=== PATIENT | male | born 1930 | race American Indian/Alaskan Native ===

== ENCOUNTER 2016-07-21 19:24 | Emergency (ER) | payer MEDICARE ==
[2016-07-21 19:25] VITALS: BMI 32.1
[2016-07-21 20:02] VITALS: RESP 16
--- NOTE | 2016-07-21 20:17 | ED PDOC ---
"Arrival/HPI - General Historian: Patient - History of Present Illness Time/Duration: Other (2 weeks) Context: Home - General Chief Complaint: Weakness/Neurological Deficit Time Seen by Provider: 07/21/16 20:10 - History of Present Illness Narrative History of Present Illness (Text): 07/21/16 20:16 This 85 yo male with pmh htn, bph, ckd, right wrist carpal tunnel, presents to this ED c/o b/l hands feeling numbness, and pain x 2 weeks. Patient stated symptoms started after taking Gabapentin for his chronic right hand pain and numbness. Patient denies dizziness, diplopia, sob, cp, abdominal pain, neck pain, BO, rash, trauma, or abnormal gait. (Lindsey Conley) Past Medical History - Provider Review Nursing Documentation Reviewed: Yes - Infectious Disease Hx of Infectious Diseases: None - Cardiac Hx Hypertension: Yes - Pulmonary Hx Respiratory Disorders: No Hx Asthma: No Hx Bronchitis: No Hx Chronic Obstructive Pulmonary Disease (COPD): No Hx Emphysema: No Hx Pneumonia: No Hx Respiratory Aspiration: No Hx Respiratory Tract Infection: No Hx Sleep Apnea: No Hx Tuberculosis: No - Neurological Hx Neurological Disorder: Yes Hx Alzheimer's Disease: No HX Cerebrovascular Accident: No Hx Dementia: No Hx Dizziness: No Hx Meningitis: No Hx Migraine: No Hx Parkinson's Disease: No Hx Seizures: No Hx Transient Ischemic Attacks (TIA): No Other/Comment: NEUROPATHY - HEENT Hx HEENT Disorder: No Hx Blind: No Hx Cataracts: No Hx Deafness: No Hx Difficulty Chewing: No Hx Epistaxis: No Hx Glaucoma: No Hx Macular Degeneration: No - Renal Hx Renal Disorder: No Hx Dialysis: No Hx Kidney Stones: No Hx Neurogenic Bladder: No Hx Pyelonephritis: No Hx Renal Cancer: No Hx Renal Failure: No - Endocrine/Metabolic Hx Endocrine Disorders: No Hx Adrenal Cancer: No Hx Diabetes Insipidus: No Hx Diabetes Mellitus Type 1: No Hx Diabetes Mellitus Type 2: No Hx Hyperthyroidism: No Hx Hypothyroidism: No Hx Systemic Lupus Erythematosus: No - Hematological/Oncological Hx Blood Disorders: No Hx AIDS: No Hx Anemia: No Hx Cancer: No Hx Chemotherapy: No Hx Cirrhosis: No Hx Hemophilia: No Hx Hepatitis A: No Hx Hepatitis B: No Hx Hepatitis C: No Hx Metastasis: No Hx Shingles: No Hx Sickle Cell Disease: No Hx Unexplained Bleeding: No - Integumentary Hx Dermatological Disorder: No Hx Basal Cell Carcinoma: No Hx Eczema: No Hx Melanoma: No Hx Psoriasis: No Hx Squamous Cell Carcinoma: No - Musculoskeletal/Rheumatological Hx Gout: Yes - Gastrointestinal Hx Gastrointestinal Disorders: No Hx Colostomy: No Hx Crohn's Disease: No Hx Diverticulitis: No Hx Gall Bladder Disease: No Hx Gastroesophageal Reflux: No Hx Gastrointestinal Ulcer: No Hx Ileostomy: No Hx Liver Failure: No Hx Pancreatitis: No HX Swallowing Problems: No - Genitourinary/Gynecological Hx Genitourinary Disorders: Yes Hx Hematuria: No Hx Incontinence: No Hx Prostate Problems: Yes Hx Sexually Transmitted Diseases: No Hx Urinary Tract Infection: No - Psychiatric Hx Psychophysiologic Disorder: No Hx Anxiety: No Hx Bipolar Disorder: No Hx Depression: No Hx Emotional Abuse: No Hx Hallucinations: No Hx Panic Disorder: No Hx Post Traumatic Stress Disorder: No Hx Psychosis: No Hx Physical Abuse: No Hx Schizophrenia: No Hx Sexual Abuse: No Hx Substance Use: No - Surgical History Hx Amputation: No Hx Appendectomy: No Hx Cardiac Catheterization: No Hx Cholecystectomy: No Hx Coronary Stent: No Hx Gastric Bypass Surgery: No Hx Hysterectomy: No Hx Joint Replacement: No Hx Kidney Transplant: No Hx Liver Transplant: No Hx Mastectomy: No Hx Musculoskeletal Surgery: No Hx Open Heart Surgery: No Hx Orthopedic Surgery: No Hx Splenectomy: No Hx Valve Replacement: No Other/Comment: Pt stated he had a fatty tumor/cyst removed from his lt side. Pt also had a prostate procedure with Dr Seth. - Anesthesia Hx Anesthesia: No Hx Anesthesia Reactions: No Hx Malignant Hyperthermia: No Family/Social History - Physician Review Nursing Documentation Reviewed: Yes Family/Social History: No Known Family HX Smoking Status: Former Smoker Hx Alcohol Use: No Hx Substance Use: No Allergies/Home Meds Allergies/Adverse Reactions: Allergies No Known Allergies Allergy (Verified 07/21/16 19:46) Home Medications: Home Meds Medication Instructions Recorded Confirmed amLODIPine [Norvasc] 10 mg PO DAILY 04/24/15 07/21/16 Docusate [Colace] 100 mg PO DAILY 07/21/16 07/21/16 Ferrous Sulfate, Dried [Iron] 1 tab PO DAILY 07/21/16 07/21/16 Gabapentin [Neurontin] 300 mg PO TID 07/21/16 07/21/16 Multivit-Min/FA/Lycopen/Lutein 1 tab PO DAILY 07/21/16 07/21/16 [Centrum Silver Men Tablet] Tamsulosin [Flomax] 0.4 mg PO DAILY 07/21/16 07/21/16 Review of Systems - Review of Systems Constitutional: Normal. absent: Fatigue, Weight Change, Fevers Eyes: Normal ENT: Normal Respiratory: Normal Cardiovascular: Normal Gastrointestinal: Normal Genitourinary Male: Normal Musculoskeletal: Other (See HPI) Skin: Normal Neurological: Other (See HPI). absent: Headache, Dizziness, Focal Weakness, Gait Changes, Speech Changes, Facial Droop, Disequilibrium Endocrine: Normal Hemo/Lymphatic: Normal Psychiatric: Normal Physical Exam Temperature: Afebrile Blood Pressure: Normal Pulse: Regular Respiratory Rate: Normal Appearance: Positive for: Well-Appearing, Non-Toxic, Comfortable Pain Distress: None Mental Status: Positive for: Alert and Oriented X 3 - Systems Exam Head: Present: Atraumatic, Normocephalic Pupils: Present: PERRL Extroacular Muscles: Present: EOMI Conjunctiva: Present: Normal Ears: Present: Normal, NORMAL TM, Normal Canal. No: Erythema, TM Bulging, Fluid Mouth: Present: Moist Mucous Membranes Pharnyx: Present: Normal. No: ERYTHEMA, EXUDATE, TONSILS ENLARGED Neck: Present: Normal Range of Motion. No: Meningeal Signs Respiratory/Chest: Present: Clear to Auscultation, Good Air Exchange. No: Respiratory Distress, Accessory Muscle Use, Wheezes, Retracting Cardiovascular: Present: Regular Rate and Rhythm, Normal S1, S2. No: Murmurs Abdomen: Present: Normal Bowel Sounds. No: Tenderness, Distention, Peritoneal Signs, Rebound, Guarding Back: Present: Normal Inspection. No: CVA Tenderness Upper Extremity: Present: Normal ROM, NORMAL PULSES, Neurovascularly Intact, Capillary Refill < 2s, Other (Chronic right thenar atrophy from chronic carpal tunnel. No erythema or swelling.). No: Cyanosis, Edema, Tenderness, Swelling Lower Extremity: Present: Normal Inspection, NORMAL PULSES, Normal ROM, Capillary Refill < 2 s. No: Edema Neurological: Present: GCS=15, CN II-XII Intact, Speech Normal, Motor Func Grossly Intact, Normal Sensory Function, Gait Normal, Memory Normal Skin: Present: Warm, Dry, Normal Color. No: Rashes Psychiatric: Present: Alert, Oriented x 3 Vital Signs Temp Pulse Resp BP Pulse Ox 03/24/17 23:50 97.9 F 79 16 134/66 100 07/21/16 23:27 77 16 139/67 97 07/21/16 21:40 64 16 130/71 98 07/21/16 19:52 98.1 F 77 16 154/81 H 97 Medical Decision Making Re-evaluation Time: 23:38 Reassessment Condition: Re-examined, Improved - Lab Interpretations Interpretation: No clinic. lab abnormalty ((+) acute cystitis) - EKG Interpretation Interpreted by ED Physician: Yes (Sinus rhythm with sinus arrhythmia. No ST changes.) Type: 12 lead EKG Comparison: No previous EKG avail. (Dr. Freitas reviewed EKG) ED Course and Treatment: 07/21/16 23:38 Re-evaluation. Patient feels better. Discussed results and plan with patient and family who expresses understanding. All questions answered and there is agreement with the plan to discharge home with instructions. Patient stable for discharge. Return if symptoms persist or worsen. Patient remained stable during the course of ED visit. Patient has his normal gait. Denies dizziness. (Lindsey Conley) 07/23/16 11:40 I was available for consultation during PA evaluation. The chart reviewed by me , and I agree with disposition. The documented history was done by the physician steward/stewardess room. The documented physical exam was done by physician steward/stewardess room. The documented procedures were done by physician steward/stewardess room. (Chuckie Freitas) - Lab Interpretations Microbiology Results: Microbiology Results 07/21/16 23:34 Urine,Clean Catch Urine Culture - Preliminary Gram Negative Alejandro Lab Results: 07/21/16 20:43 07/21/16 20:43 Lab Results 07/21/16 22:08: Urine Color Yellow, Urine Appearance Clear, Urine pH 6.0, Ur Specific [place] 1.020, Urine Protein Negative, Urine Glucose (UA) Negative, Urine Ketones Negative, Urine Blood Negative, Urine Nitrate Positive H, Urine Bilirubin Negative, Urine Urobilinogen 0.2, Ur Leukocyte Esterase Small H, Urine RBC 1 - 3, Urine WBC 10 - 15, Ur Epithelial Cells 4 - 5, Amorphous Sediment Few, Urine Bacteria Many 07/21/16 20:47: Troponin I 0.02 07/21/16 20:43: WBC 8.7 D, RBC 3.66, Hgb 10.4 L, Hct 32.1 L, MCV 87.7, MCH 28.4 , MCHC 32.4, RDW 13.8, Plt Count 243, MPV 9.8, Gran % 62.6, Lymph % (Auto) 21.4 L, [place] % (Auto) 12.5 H, Eos % (Auto) 3.2, Baso % (Auto) 0.3, Gran # 5.45, Lymph # 1.9, [place] # 1.1 H, Eos # 0.3, Baso # 0.03, Sodium 140, Potassium 4.6, Chloride 106, Carbon Dioxide 24, Anion Gap 15, BUN 33 H, Creatinine 1.6 H, Est GFR ( Amer) 50, Est GFR (Non-Af Amer) 41, Random Glucose 103, Calcium 9.3 , Magnesium 2.2, Total Bilirubin 0.5, AST 36, ALT 30, Alkaline Phosphatase 84, Total Protein 7.7, Albumin 3.8, Globulin 3.9, Albumin/Globulin Ratio 1.0 L - RAD Interpretation Narrative RAD Interpretations (Text): 07/21/16 22:37 Patient Name: VIKTORIYA DEL ROSARIO Institution Name: [place] [address] Study Type: CT HEAD WO FINDINGS: Artifacts: Streak artifact degrades image quality. Motion artifact degrades image quality. Brain: There is prominence of sulci gyri and ventricles. There is no midline shift. There is decreased attenuation in periventricular white matter. There is an age-indeterminate lacunar infarct in right basal ganglia. There are no focal masses. There are no focal hemorrhages. Franco-white differentiation is visualized. Ventricles: See above. Bones: Cranial vault is intact. Soft tissues: unremarkable Sinuses: There is no acute sinusitis. Ears and mastoids: Middle ears and mastoids are unremarkable. Orbits: Orbital contents are unremarkable. 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 If you received this in error, call [phone]. Page 2 of 2 Thank you for allowing us to participate in the care of your patient. Dictated and Authenticated by: Andreia De La Cruz MD 07/21/2016 10:34 PM Eastern Time ([place] & [place] (Lindsey Conley) Radiology Orders: 07/21/16 21:02 HEAD W/O CONTRAST [CT] Stat - Medication Orders Current Medication Orders: Discontinued Medications Cephalexin Monohydrate (Keflex) 500 mg PO STAT STA PRN Reason: Protocol Stop: 07/21/16 23:35 Last Admin: 07/21/16 23:39 Dose: 500 MG Disposition/Present on Arrival - Present on Arrival Any Indicators Present on Arrival: No History of DVT/PE: No History of Uncontrolled Diabetes: No Urinary Catheter: No History of Decub. Ulcer: No History Surgical Site Infection Following: None - Disposition Have Diagnosis and Disposition been Completed?: Yes Disposition Time: 23:39 Patient Plan: Discharge - Disposition Diagnosis: Numbness and tingling in both hands, Acute cystitis Disposition: HOME/ ROUTINE Condition: GOOD Discharge Instructions (ExitCare): Urinary Tract Infection in Men (ED) Additional Instructions: Call private doctor and private urologist for follow up visit on Sunday. Review urine culture with your doctor in 3 days. Return to emergency if symptoms worsen. Prescriptions: Cephalexin [cephalexin] 500 mg PO BID #20 cap Referrals: Goldy Rodriguez MD [Primary Care Provider] - Follow up with primary Yuiry Seth MD [Staff Provider] - Follow up with primary"
[2016-07-21 20:49] LABS: ADD MANUAL DIFF? NO
[2016-07-21 20:52] LABS: BASO # 0.03 K/mm3 (0.0-2.0); BASO % 0.3 % (0.0-3.0); EOS # 0.3 (0.0-0.7); EOS % 3.2 % (1.5-5.0); GRAN # 5.45 (1.4-6.5); GRAN % 62.6 % (50.0-68.0); HEMATOCRIT 32.1 % (42.0-52.0); LYMPH # 1.9 (1.2-3.4); LYMPH % 21.4 % (22.0-35.0); MEAN CELL VOLUME 87.7 fL (80.0-105.0); MEAN CORPUSCULAR HEMOGLOBIN 28.4 pg (25.0-35.0); MEAN CORPUSCULAR HGB CONC 32.4 g/dl (31.0-37.0); MEAN PLATELET VOLUME 9.8 fl (7.0-11.0); MONO # 1.1 (0.1-0.6); MONO % 12.5 % (1.0-6.0); PLATELET COUNT 243 10^3/uL (120.0-450.0); RED CELL DISTRIBUTION WIDTH 13.8 % (11.5-14.5); WHITE BLOOD COUNT 8.7 10^3/ul (4.5-11.0)
[2016-07-21 21:06] LABS: BILIRUBIN,TOTAL 0.5 mg/dL (0.2-1.3); CALCIUM 9.3 mg/dL (8.4-10.5); MAGNESIUM 2.2 mg/dL (1.7-2.2); POTASSIUM 4.6 mmol/L (3.6-5.0); TOTAL PROTEIN 7.7 g/dL (5.8-8.3)
[2016-07-21 22:18] LABS: URINE BILIRUBIN NEGATIVE (NEGATIVE); URINE BLOOD NEGATIVE (NEGATIVE); URINE GLUCOSE (UA) NEGATIVE (NEGATIVE); URINE KETONE NEGATIVE (NEGATIVE); URINE LEUKOCYTE ESTERASE SMALL Leu/uL (NEGATIVE); URINE PROTEIN NEGATIVE mg/dL (<30 mg/dL); URINE UROBILINOGEN 0.2 E.U./dL (<1 E.U./dL)
[2016-07-21 22:25] LABS: URINE APPEARANCE CLEAR (CLEAR); URINE COLOR YELLOW (YELLOW)
[2016-07-21 22:34] LABS: URINE AMORPHOUS SEDIMENT FEW; URINE BACTERIA MANY (NEG)
--- NOTE | 2016-07-21 22:34 | CT ---
EXAM: CT Head Without Intravenous Contrast. CLINICAL HISTORY: 85 years old, male; Signs and symptoms; Numbness / parasthesia; Bilateral; Additional info: B/l hands numbness TECHNIQUE: Axial computed tomography images of the head/brain without intravenous contrast. This CT exam was performed using one or more of the following dose reduction techniques: automated exposure control, adjustment of the mA and/or kV according to patient size, and/or use of iterative reconstruction technique. EXAM DATE/TIME: 07/21/2016 9:02 PM COMPARISON: There are no prior studies for comparison. FINDINGS: Artifacts: Streak artifact degrades image quality. Motion artifact degrades image quality. Brain: There is prominence of sulci gyri and ventricles. There is no midline shift. There is decreased attenuation in periventricular white matter. There is an age-indeterminate lacunar infarct in right basal ganglia. There are no focal masses. There are no focal hemorrhages. Franco-white differentiation is visualized. Ventricles: See above. Bones: Cranial vault is intact. Soft tissues: unremarkable Sinuses: There is no acute sinusitis. Ears and mastoids: Middle ears and mastoids are unremarkable. Orbits: Orbital contents are unremarkable. IMPRESSION: Mild atrophy and small vessel disease, no bleed; age indeterminate right basal ganglia lacunar infarct
[2016-07-21 23:52] VITALS: BP 134/66; PULSE 79; TEMP 97.9; O2SAT 100
--- NOTE | 2016-07-22 14:59 | CARD ---
APPROVED REPORT EKG Measurement Heart [id number] <Conclusion> Sinus rhythm with Atrial bigeminy Otherwise normal ECG
== END 2016-07-22 00:08 | disposition home or self-care (01) ==
LOC: ED 19:24
DX: R20.9 Unspecified disturbances of skin sensation (principal); N30.00 Acute cystitis without hematuria; I10 Essential (primary) hypertension; Z87.891 Personal history of nicotine dependence

== ENCOUNTER 2016-07-28 22:30 | Inpatient (IN) | payer MEDICARE ==
[2016-07-28 22:42] VITALS: BMI 31.1
[2016-07-29 01:26] LABS: ADD MANUAL DIFF? NO
[2016-07-29 01:35] LABS: BASO # 0.02 K/mm3 (0.0-2.0); BASO % 0.2 % (0.0-3.0); EOS # 0.1 (0.0-0.7); EOS % 0.8 % (1.5-5.0); GRAN # 8.24 (1.4-6.5); GRAN % 80.9 % (50.0-68.0); HEMATOCRIT 32.6 % (42.0-52.0); LYMPH # 0.9 (1.2-3.4); LYMPH % 8.4 % (22.0-35.0); MEAN CELL VOLUME 87.2 fL (80.0-105.0); MEAN CORPUSCULAR HEMOGLOBIN 28.6 pg (25.0-35.0); MEAN CORPUSCULAR HGB CONC 32.8 g/dl (31.0-37.0); MEAN PLATELET VOLUME 10.1 fl (7.0-11.0); MONO % 9.7 % (1.0-6.0); PLATELET COUNT 247 10^3/uL (120.0-450.0); RED CELL DISTRIBUTION WIDTH 13.5 % (11.5-14.5); WHITE BLOOD COUNT 10.2 10^3/ul (4.5-11.0)
[2016-07-29 01:47] LABS: ALB/GLOB RATIO 0.9 (1.1-1.8); ALKALINE PHOSPHATASE 88 U/L (38-133); ALT/SGPT 24 U/L (7-56); AST/SGOT 41 U/L (15-59); BILIRUBIN,TOTAL 0.6 mg/dL (0.2-1.3); BLOOD UREA NITROGEN 29 mg/dL (7-21); CALCIUM 9.4 mg/dL (8.4-10.5); CARBON DIOXIDE 23 mmol/L (21-33); CHLORIDE 107 mmol/L (98-107); GFR AFRICAN-AMERICAN 50; GLUCOSE,RANDOM 96 mg/dL (70-110); POTASSIUM 4.6 mmol/L (3.6-5.0); SODIUM 140 mmol/L (132-148); TOTAL PROTEIN 8.5 g/dL (5.8-8.3)
[2016-07-29 02:06] LABS: TROPONIN I < 0.01 ng/mL
--- NOTE | 2016-07-29 02:42 | CT ---
EXAM: CT Head Without Intravenous Contrast CLINICAL HISTORY: 85 years old, male; Pain; Other: Fall; Additional info: Headache TECHNIQUE: Axial computed tomography images of the head/brain without intravenous contrast. This CT exam was performed using one or more of the following dose reduction techniques: automated exposure control, adjustment of the mA and/or kV according to patient size, and/or use of iterative reconstruction technique. COMPARISON: CT - HEAD W/O CONTRAST 07/21/2016 9:57:18 PM FINDINGS: Brain: [id number] atrophy. No intracranial hemorrhage. No mass. Several scattered foci of decreased attenuation within periventricular/subcortical white matter. No edema. Ventricles: No hydrocephalus. Bones/joints: No acute fracture. Soft tissues: Unremarkable. Vasculature: Atherosclerotic disease of intracranial arteries. Sinuses: Near-complete opacification of RIGHT sphenoid sinus. Scattered minimal mucosal thickening of remaining sinuses. Mastoid air cells: No mastoid effusion. Orbits: Unremarkable as visualized. IMPRESSION: 1. No intracranial hemorrhage. 2. Nonspecific white matter changes. 3. Sinus disease. 4. Incidental/non-acute findings are described above.
--- NOTE | 2016-07-29 02:47 | CT ---
EXAM: CT Cervical Spine Without Intravenous Contrast CLINICAL HISTORY: 85 years old, male; Pain; Neck pain; Additional info: Fall TECHNIQUE: Axial computed tomography images of the cervical spine without intravenous contrast. This CT exam was performed using one or more of the following dose reduction techniques: automated exposure control, adjustment of the mA and/or kV according to patient size, and/or use of iterative reconstruction technique. Coronal and sagittal reformatted images were created and reviewed. COMPARISON: No relevant prior studies available. FINDINGS: Vertebrae: No acute fracture. Straightening of cervical spine. Degenerative anterolisthesis of mid cervical spine. Anterior osteophytes. Facet osteoarthrosis within cervical spine. Degenerative changes of atlantoaxial articulation. Discs/spinal canal/neural foramina: Early degenerative disc disease within upper and mid cervical spine. Mild degenerative disc disease within lower cervical spine. Disc herniations within mid to lower cervical spine, suboptimally evaluated. Moderate indentation thecal sac/cord mid cervical spine. Mild indentation thecal sac lower cervical spine. Neuroforaminal narrowing within mid and lower cervical spine. Soft tissues: Unremarkable. Lung apices: Unremarkable as visualized. IMPRESSION: 1. No fracture. 2. Incidental/non-acute findings are described above.
[2016-07-29 02:55] LABS: URINE BILIRUBIN NEGATIVE (NEGATIVE); URINE BLOOD TRACE-INTACT (NEGATIVE); URINE GLUCOSE (UA) NEGATIVE (NEGATIVE); URINE KETONE NEGATIVE (NEGATIVE); URINE LEUKOCYTE ESTERASE NEGATIVE Leu/uL (NEGATIVE); URINE PROTEIN 30 mg/dL (<30 mg/dL); URINE UROBILINOGEN 0.2 E.U./dL (<1 E.U./dL)
[2016-07-29 02:59] LABS: URINE APPEARANCE CLEAR (CLEAR); URINE COLOR YELLOW (YELLOW)
--- NOTE | 2016-07-29 03:35 | ED PDOC ---
Arrival/HPI <Natalie,Robert - Last Filed: 07/29/16 03:47> - General Historian: Patient, Family <Kamille Senior - Last Filed: 07/29/16 04:36> - General Chief Complaint: Trauma Time Seen by Provider: 07/29/16 00:26 - History of Present Illness Narrative History of Present Illness (Text): 07/29/16 04:20 85-year-old male presents today brought in by ambulance after being found on the ground in his home. 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 Family members state that they were calling the house multiple times and the patient did not answer finally he answered a cell phone and said that he was on the ground. It is unsure the exact timeframe that the patient was on the ground but it is assumed that the patient has been on the ground since about 1:00 in the afternoon. Patient denies headache although he states he does have some pain to the left side of the forehead and an abrasion to the left side of the face. Patient denies dizziness. Patient states he has been feeling weak and that 's why he believes he was unable to get up once he had fallen. He denies chest pain or shortness of breath. He is complaining of chronic neck and low back pain he denies numbness weakness or tingling in the extremities. No abdominal pain. Patient states he did feel nauseous in the emergency room and vomited 3 times. Family members state that the patient has been having frequent falls lately but this is the first time that they've actually witnessed him on the ground. They state he usually tells them about a week later that he has fallen. (Kamille Senior) Past Medical History - Provider Review Nursing Documentation Reviewed: Yes - Travel History Have you recently traveled outside [place] w/in the past 3 mons?: No - Infectious Disease Hx of Infectious Diseases: None - Tetanus Immunization Tetanus Immunization: Unknown - Cardiac Hx Hypertension: Yes - Pulmonary Hx Respiratory Disorders: No Hx Asthma: No Hx Bronchitis: No Hx Chronic Obstructive Pulmonary Disease (COPD): No Hx Emphysema: No Hx Pneumonia: No Hx Respiratory Aspiration: No Hx Respiratory Tract Infection: No Hx Sleep Apnea: No Hx Tuberculosis: No - Neurological Hx Neurological Disorder: Yes Hx Alzheimer's Disease: No HX Cerebrovascular Accident: No Hx Dementia: No Hx Dizziness: No Hx Meningitis: No Hx Migraine: No Hx Parkinson's Disease: No Hx Seizures: No Hx Transient Ischemic Attacks (TIA): No Other/Comment: NEUROPATHY - HEENT Hx HEENT Disorder: No Hx Blind: No Hx Cataracts: No Hx Deafness: No Hx Difficulty Chewing: No Hx Epistaxis: No Hx Glaucoma: No Hx Macular Degeneration: No - Renal Hx Renal Disorder: No Hx Dialysis: No Hx Kidney Stones: No Hx Neurogenic Bladder: No Hx Pyelonephritis: No Hx Renal Cancer: No Hx Renal Failure: No - Endocrine/Metabolic Hx Endocrine Disorders: No Hx Adrenal Cancer: No Hx Diabetes Insipidus: No Hx Diabetes Mellitus Type 1: No Hx Diabetes Mellitus Type 2: No Hx Hyperthyroidism: No Hx Hypothyroidism: No Hx Systemic Lupus Erythematosus: No - Hematological/Oncological Hx Blood Disorders: No Hx AIDS: No Hx Anemia: No Hx Cancer: No Hx Chemotherapy: No Hx Cirrhosis: No Hx Hemophilia: No Hx Hepatitis A: No Hx Hepatitis B: No Hx Hepatitis C: No Hx Metastasis: No Hx Shingles: No Hx Sickle Cell Disease: No Hx Unexplained Bleeding: No - Integumentary Hx Dermatological Disorder: No Hx Basal Cell Carcinoma: No Hx Eczema: No Hx Melanoma: No Hx Psoriasis: No Hx Squamous Cell Carcinoma: No - Musculoskeletal/Rheumatological Hx Gout: Yes - Gastrointestinal Hx Gastrointestinal Disorders: No Hx Colostomy: No Hx Crohn's Disease: No Hx Diverticulitis: No Hx Gall Bladder Disease: No Hx Gastroesophageal Reflux: No Hx Gastrointestinal Ulcer: No Hx Ileostomy: No Hx Liver Failure: No Hx Pancreatitis: No HX Swallowing Problems: No - Genitourinary/Gynecological Hx Genitourinary Disorders: Yes Hx Hematuria: No Hx Incontinence: No Hx Prostate Problems: Yes Hx Sexually Transmitted Diseases: No Hx Urinary Tract Infection: No - Psychiatric Hx Psychophysiologic Disorder: No Hx Anxiety: No Hx Bipolar Disorder: No Hx Depression: No Hx Emotional Abuse: No Hx Hallucinations: No Hx Panic Disorder: No Hx Post Traumatic Stress Disorder: No Hx Psychosis: No Hx Physical Abuse: No Hx Schizophrenia: No Hx Sexual Abuse: No Hx Substance Use: No - Surgical History Hx Amputation: No Hx Appendectomy: No Hx Cardiac Catheterization: No Hx Cholecystectomy: No Hx Coronary Stent: No Hx Gastric Bypass Surgery: No Hx Hysterectomy: No Hx Joint Replacement: No Hx Kidney Transplant: No Hx Liver Transplant: No Hx Mastectomy: No Hx Musculoskeletal Surgery: No Hx Open Heart Surgery: No Hx Orthopedic Surgery: No Hx Splenectomy: No Hx Valve Replacement: No Other/Comment: Pt stated he had a fatty tumor/cyst removed from his lt side. Pt also had a prostate procedure with Dr Seth. - Anesthesia Hx Anesthesia: No Hx Anesthesia Reactions: No Hx Malignant Hyperthermia: No <Kamille Senior - Last Filed: 07/29/16 04:36> Family/Social History - Physician Review Nursing Documentation Reviewed: Yes Family/Social History: Unknown Family HX Smoking Status: Former Smoker Hx Alcohol Use: No Hx Substance Use: No <Kamille Senior - Last Filed: 07/29/16 04:36> Allergies/Home Meds <Rodrick Estrada - Last Filed: 07/29/16 03:47> <Kamille Senior - Last Filed: 07/29/16 04:36> Allergies/Adverse Reactions: Allergies No Known Allergies Allergy (Verified 07/21/16 19:46) Home Medications: Home Meds Medication Instructions Recorded Confirmed amLODIPine [Norvasc] 10 mg PO DAILY 04/24/15 07/21/16 Docusate [Colace] 100 mg PO DAILY 07/21/16 07/21/16 Ferrous Sulfate, Dried [Iron] 1 tab PO DAILY 07/21/16 07/21/16 Gabapentin [Neurontin] 300 mg PO TID 07/21/16 07/21/16 Multivit-Min/FA/Lycopen/Lutein 1 tab PO DAILY 07/21/16 07/21/16 [Centrum Silver Men Tablet] Tamsulosin [Flomax] 0.4 mg PO DAILY 07/21/16 07/21/16 Review of Systems - Review of Systems Constitutional: absent: Fatigue, Fevers Eyes: absent: Vision Changes, Photophobia, Eye Pain ENT: absent: Sore Throat, Sinus Congestion Respiratory: absent: SOB, Cough Cardiovascular: absent: Chest Pain, Palpitations Gastrointestinal: Nausea, Vomiting. absent: Abdominal Pain, Constipation, Diarrhea Genitourinary Male: absent: Dysuria, Frequency, Hematuria Musculoskeletal: Back Pain, Neck Pain. absent: Arthralgias Skin: absent: Rash, Pruritis Neurological: absent: Headache, Dizziness Psychiatric: absent: Anxiety, Depression <Kamille Senior - Last Filed: 07/29/16 04:36> Physical Exam Vital Signs Reviewed: Yes Temperature: Afebrile Blood Pressure: Normal Pulse: Regular Respiratory Rate: Normal Appearance: Positive for: Well-Appearing, Non-Toxic, Comfortable Pain Distress: None Mental Status: Positive for: Alert and Oriented X 3 - Systems Exam Head: Present: Tenderness (+ swelling and minimal tenderness noted to the left forehead. ), Swelling, Abrasion (small abrasion noted to left side of neck just inferior to the ear. no active bleeding; non tender; ) Pupils: Present: PERRL Extroacular Muscles: Present: EOMI Conjunctiva: Present: Normal Mouth: Present: Moist Mucous Membranes Nose (Internal): Present: Normal Inspection Neck: Present: Normal Range of Motion, Paraspinal Tenderness, Trachea Midline. No: MIDLINE TENDERNESS Respiratory/Chest: Present: Clear to Auscultation, Good Air Exchange. No: Respiratory Distress, Accessory Muscle Use Cardiovascular: Present: Regular Rate and Rhythm, Normal S1, S2. No: Murmurs Abdomen: No: Tenderness, Distention, Rebound, Guarding Back: Present: Normal Inspection, Midline Tenderness (+ low lumbar tenderness. ) , Paraspinal Tenderness Upper Extremity: Present: Normal ROM Lower Extremity: Present: Normal ROM Neurological: Present: GCS=15 Skin: Present: Warm, Dry, Normal Color. No: Rashes Psychiatric: Present: Alert <Kamille Senior - Last Filed: 07/29/16 04:36> Vital Signs Temp Pulse Resp BP Pulse Ox 07/29/16 04:26 85 16 142/70 96 07/29/16 02:42 98 F 87 16 138/74 98 07/28/16 22:48 98.2 F 87 18 130/80 98 Medical Decision Making <Rodrick Estrada - Last Filed: 07/29/16 03:47> <Kamille Senior - Last Filed: 07/29/16 04:36> ED Course and Treatment: 07/29/16 04:24 85-year-old male presents with unwitnessed fall versus syncope. Was found on the ground for at least 6+ hours. CBC within normal limits CMP: BUn and 29 creatinine 1.6 unchanged from his previous visit Urinalysis shows blood. trop: wnl cpk: 549 cxr: wnl CAT scan of the head: FINDINGS: Brain: Gopu-dz-tazuvgcs atrophy. No intracranial hemorrhage. No mass. Several scattered foci of decreased attenuation within periventricular/subcortical white matter. No edema. Ventricles: No hydrocephalus. Bones/joints: No acute fracture. Soft tissues: Unremarkable. Vasculature: Atherosclerotic disease of intracranial arteries. Sinuses: Near-complete opacification of RIGHT sphenoid sinus. Scattered minimal mucosal thickening of remaining sinuses. Mastoid air cells: No mastoid effusion. Orbits: Unremarkable as visualized. IMPRESSION: 1. No intracranial hemorrhage. 2. Nonspecific white matter changes. 3. Sinus disease. 4. Incidental/non-acute findings are described above. CAT scan of the neck:FINDINGS: Vertebrae: No acute fracture. Straightening of cervical spine. Degenerative anterolisthesis of mid cervical spine. Anterior osteophytes. Facet osteoarthrosis within cervical spine. Degenerative changes of atlantoaxial articulation. Discs/spinal canal/neural foramina: Early degenerative disc disease within upper and mid cervical spine. Mild degenerative disc disease within lower cervical spine. Disc herniations within mid to lower cervical spine, suboptimally evaluated. Moderate indentation thecal sac/ cord mid cervical spine. Mild indentation thecal sac lower cervical spine. Neuroforaminal narrowing within mid and lower cervical spine. Soft tissues: Unremarkable. Lung apices: Unremarkable as visualized. IMPRESSION: 1. No fracture. 2. Incidental/non-acute findings are described above CAT scan of the lumbar spine:FINDINGS: Vertebrae: No acute fracture. Anterior osteophytes. Facet osteoarthrosis within lumbar spine. Discs/spinal canal/neural foramina: Moderate degenerative disc disease within lower lumbar spine. Other bones: Mild degenerative changes of hip joints. Soft tissues: Unremarkable. Vasculature: Dfjc-ug-yumxtxru atherosclerotic disease. Ectasia of infrarenal aorta, up to 2.6 cm. Kidneys and ureters: Several renal cysts. Few hypodense lesions within kidneys, indeterminate by CT criteria. Stomach and bowel: Colonic diverticula. Reproductive: Enlarged prostate gland. IMPRESSION: 1. No fracture. 2. Kidney lesions, indeterminate. Recommend nonemergent ultrasound or MRI. 3. Incidental/non-acute findings are described above. EKG sinus rhythm with PACs at [address] elevations case discussed with dr. bo; will admit observational status to tele for syncope; all aspects of this case were discussed the attending of record. impression; syncope admit tele obs; dr. 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 (Kamille Senior) - Lab Interpretations Lab Results: 07/29/16 01:20 07/29/16 01:20 Lab Results 07/29/16 02:48: Urine Color Yellow, Urine Appearance Clear, Urine pH 6.0, Ur Specific [place] 1.025, Urine Protein 30 H, Urine Glucose (UA) Negative, Urine Ketones Negative, Urine Blood Trace-intact H, Urine Nitrate Negative, Urine Bilirubin Negative, Urine Urobilinogen 0.2, Ur Leukocyte Esterase Negative, Urine RBC 5 - 10, Urine WBC 2 - 5, Ur Epithelial Cells 6 - 8 07/29/16 01:20: WBC 10.2, RBC 3.74, Hgb 10.7 L, Hct 32.6 L, MCV 87.2, MCH 28.6, MCHC 32.8, RDW 13.5, Plt Count 247, MPV 10.1, Gran % 80.9 H, Lymph % (Auto) 8.4 L, [place] % (Auto) 9.7 H, Eos % (Auto) 0.8 L, Baso % (Auto) 0.2, Gran # 8.24 H, Lymph # 0.9 L, [place] # 1.0 H, Eos # 0.1, Baso # 0.02, Sodium 140, Potassium 4.6, Chloride 107, Carbon Dioxide 23, Anion Gap 15, BUN 29 H, Creatinine 1.6 H, Est GFR ( Amer) 50, Est GFR (Non-Af Amer) 41, Random Glucose 96, Calcium 9.4 , Total Bilirubin 0.6, AST 41, ALT 24, Alkaline Phosphatase 88, Lactate Dehydrogenase 650, Total Creatine Kinase 594 H, CK-MB (CK-2) 3.9 H, CK-MB (CK-2 ) % Cancelled, Troponin I < 0.01 D, Total Protein 8.5 H, Albumin 4.1, Globulin 4.5, Albumin/Globulin Ratio 0.9 L - RAD Interpretation Radiology Orders: 07/29/16 00:34 CHEST PORTABLE [RAD] Stat 07/29/16 00:35 CERVICAL SPINE W/O CONTRAST [CT] Stat HEAD W/O CONTRAST [CT] Stat 07/29/16 00:38 LUMBAR SPINE W/O CONTRAST [CT] Stat - Medication Orders Current Medication Orders: Discontinued Medications Ondansetron HCl (Zofran Inj) 4 mg IVP STAT STA Stop: 07/29/16 00:35 Last Admin: 07/29/16 01:11 Dose: 4 MG IVP Administration Document 07/29/16 01:11 SAIGE (Rec: 07/29/16 01:11 SAIGE [id number]) Charges for Administration # of IVP Administrations 1 - PA / HOSPICE VOLUNTEER COORDINATOR / Resident Statement / has reviewed & agrees with the documentation as recorded. / has examined the patient and agrees with the treatment plan. <Rodrick Estrada - Last Filed: 07/29/16 03:47> Disposition/Present on Arrival <Rodrick Estrada - Last Filed: 07/29/16 03:47> - Present on Arrival Any Indicators Present on Arrival: No History of DVT/PE: No History of Uncontrolled Diabetes: No Urinary Catheter: No History of Decub. Ulcer: No History Surgical Site Infection Following: None - Disposition Have Diagnosis and Disposition been Completed?: Yes Disposition Time: 00:35 Patient Plan: Observation, Telemetry <Kamille Senior - Last Filed: 07/29/16 04:36> - Disposition Diagnosis: Syncope, Head injury, Neck pain, Back pain Disposition: HOSPITALIZED Patient Problems: Current Active Problems Problem Status Diagnosed Back pain Acute Head injury Acute Neck pain Acute Syncope Acute Condition: FAIR
--- NOTE | 2016-07-29 03:36 | CT ---
EXAM: CT Lumbar Spine Without Intravenous Contrast CLINICAL HISTORY: 85 years old, male; Pain; Other: Fall; Additional info: Back pain TECHNIQUE: Axial computed tomography images of the lumbar spine without intravenous contrast. This CT exam was performed using one or more of the following dose reduction techniques: automated exposure control, adjustment of the mA and/or kV according to patient size, and/or use of iterative reconstruction technique. Coronal and sagittal reformatted images were created and reviewed. COMPARISON: No relevant prior studies available. FINDINGS: Vertebrae: No acute fracture. Anterior osteophytes. Facet osteoarthrosis within lumbar spine. Discs/spinal canal/neural foramina: Moderate degenerative disc disease within lower lumbar spine. Other bones: Mild degenerative changes of hip joints. Soft tissues: Unremarkable. Vasculature: Wdki-sc-zkkzzpiy atherosclerotic disease. Ectasia of infrarenal aorta, up to 2.6 cm. Kidneys and ureters: Several renal cysts. Few hypodense lesions within kidneys, indeterminate by CT criteria. Stomach and bowel: Colonic diverticula. Reproductive: Enlarged prostate gland. IMPRESSION: 1. No fracture. 2. Kidney lesions, indeterminate. Recommend nonemergent ultrasound or MRI. 3. Incidental/non-acute findings are described above.
[2016-07-29] MEDS ORDERED: FERROUS SULFATE DRIED PO SCH (10:00)
[2016-07-29] MEDS: [UNRECOGNIZED DRUG - OTHER] PO SCH (10:00)
[2016-07-29] MEDS: FERROUS SULFATE DRIED PO SCH (10:00)
[2016-07-29] MEDS ORDERED: [UNRECOGNIZED DRUG - OTHER] PO SCH (10:00)
[2016-07-29] MEDS: cefTRIAXone 1 gm 100 ML IVPB SCH (10:20)
--- NOTE | 2016-07-29 12:45 | CARD ---
APPROVED REPORT EKG Measurement Heart [id number] <Conclusion> Sinus rhythm with premature atrial complexes Otherwise normal ECG
--- NOTE | 2016-07-29 13:14 | RAD ---
HISTORY: chest pain COMPARISON: No prior. FINDINGS: LUNGS: No active pulmonary disease. PLEURA: No significant pleural effusion identified, no pneumothorax apparent. CARDIOVASCULAR: Normal. OSSEOUS STRUCTURES: No significant abnormalities. VISUALIZED UPPER ABDOMEN: Normal. OTHER FINDINGS: None. IMPRESSION: No active disease.
--- NOTE | 2016-07-29 19:02 | CON ---
DATE: 07/29/2016 CHIEF COMPLAINT: Status post fall. 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 No ch jonas in sense of vision, taste or smell. No history of seizures. He did not pass out as he claimed. He says he has a history of multiple falls, but denies any acute changes in neurological status. H e denies any headache, any change in sense of vision, taste, smell, any confusion episodes. No histo ry of seizures in the past. He denies any vertiginous symptoms at all either. His CT head showed no acute intracranial abnormality. His lumbar spine CT showed no acute abnormality, just degenerative disk disease and cervical spine CT just showed degenerative disk disease and some mild spinal stenosi s. Overall, he had mild elevated BUN and creatinine from his baseline, which could be secondary to d ehydration. Otherwise, he is moving all extremities without any difficulty. PAST MEDICAL HISTORY: Hypertension, chronic back pain, chronic neck pain without any radicular sympt oms, history of gout, arthritis. REVIEW OF SYSTEMS: A 14-point review of systems is negative except for the HPI. MEDICATIONS: Reviewed by nurse reconciliation sheet. SOCIAL HISTORY: No illicit drug use, smoking, or ETOH abuse. FAMILY HISTORY: Noncontributory. ALLERGIES: No known drug allergies. PHYSICAL EXAMINATION: VITAL SIGNS: Temperature of 97.5, pulse rate of 85, blood pressure 145/70, respiratory rate of 16. GENERAL: The patient is sitting in the chair, in no acute distress. HEENT: Atraumatic, normocephalic. PERRLA. Extraocular muscles intact. NECK: Supple, no JVD, no adenopathy noted. LUNGS: Clear to auscultation. No adventitious sounds. HEART: S1, S2, normal rate and rhythm. No murmurs, rubs, or gallops. ABDOMEN: Soft, nontender, nondistended. Bowel sounds present. EXTREMITIES: No clubbing, no cyanosis. Peripheral pulses 2+ felt bilaterally. NEUROLOGIC: The patient is alert, oriented to person, place, month and year. Recall after 5 minutes is 0/3. Poor attention span. Slow thought process. Cranial nerves II through XII are intact. MOTOR: Normal tone, normal bulk of muscle. Moves all extremities equally. Toes downgoing bilateral ly. No pronator drift seen. SENSORY: Light touch, pinprick, proprioception, vibration intact except for decreased vibration of t he toes. DTRs are 1+ throughout. COORDINATION: Tzwiij-wv-aruk intact. GAIT: Deferred for now. LABORATORIES: Sodium is 140, potassium 4.6, chloride of 107, carbon dioxide 23, BUN of 29, creatinin e 1.6, random glucose . ASSESSMENT AND PLAN: This is an 85-year-old -Martiniquais man with past medical history of arthri tis, chronic back pain, chronic neck pain, history of hypertension and gout who apparently was bent o azam to cloth picker a paper and had fallen down, but did not lose any consciousness. Denies any lighthead edness or any change in sense of vision, taste or smell. No history of any seizures or any confusion al episodes. His BUN and creatinine were slightly elevated at 29 and 1.6, which is elevated from his baseline. Orthostatics were normal. He denies any lightheadedness at this time, moving all extremi ties. He is mildly deconditioned. Likely, his fall is secondary to deconditioned state and some und erlying neuropathy of unknown etiology. At this time, I recommend: 1. B12 level and a hepatitis profile. 2. Physical therapy evaluation for his underlying deconditioned state. 3. Recommend to keep his blood pressure between 120-130 mmHg. 4. Aspirin 81 mg p.o. daily for stroke prevention. 5. Continue with current present medical management. Thank you for this consult. Shahzad Larsen MD cc: [id number] TT: 07/29/2016 19:02:06 Confirmation # [id number] Dictation # [id number]
[2016-07-29 19:38] LABS: TROPONIN I 0.02 ng/mL
[2016-07-29 19:56] LABS: IRON 34 ug/dL (45-180)
--- NOTE | 2016-07-29 20:04 | CON ---
DATE: 07/29/2016 The patient is in room 275, bed 1. REASON FOR CONSULTATION: Syncope, hypertension. HISTORY OF PRESENT ILLNESS: The patient is an 85-year-old male, known case of hypertension. States that he bent down to get some paper and he fell down and hit his head. Denies any chest pain, shortn ess of breath, or palpitation associated with this episode. The patient, as per the family, was ivette kowalski on the floor. The patient denies any nausea, vomiting, chest pain, palpitation, shortness of breat h, headache associated with this episode. PAST HISTORY: The patient is known hypertensive, had appendectomy, and has also prostate surgery. PERSONAL HISTORY: Used to smoke 1 pack a day but stopped 40 years ago. Denies drinking. Denies allergies. MEDICATIONS AT HOME: The patient was taking Norvasc 10 mg daily, ferrous sulfate 1 tablet daily, frieda apentin 300 mg p.o. t.i.d., Flomax 0.4 daily. REVIEW OF SYSTEMS: All the systems were reviewed. Positives mentioned in the history, and also mandy ent has history of back pain. The patient, on examination: VITAL SIGNS: Blood pressure 145/70. Earlier blood pressure 126/76. Respirations 16, pulse 85, temp erature 97.5. HEAD: Normocephalic. EYES: Pupils normal, conjunctivae slightly pale. NECK: JVP low, carotid equal. THORAX: AP diameter normal. LUNGS: Clear. CARDIOVASCULAR: S1, S2. ABDOMEN: Soft, nontender, no organomegaly. Bowel sounds normal. EXTREMITIES: No clubbing, no cyanosis. LABORATORIES: WBC 10.2, hemoglobin 10.7, hematocrit 32.6, platelet 247. Sodium 140, potassium 4.6, BUN 29, creatinine 1.6. Troponin less than 0.01. Total CPK 594. Total protein 8.5, albumin 4.1. A ST, ALT normal. Chest X-Ray: No active disease. EKG shows sinus rhythm with premature atrial complex, otherwise nor mal EKG. CT Scan of the Head: No intracranial hemorrhage. Lumbar spine CT scan showed degenerative changes of spine. Also, incidental finding was multiple cysts on the kidney; some were hypodense. DIAGNOSES: Fall, head injury, probably syncope, back pain, degenerative changes in the spine, hypert ension, anemia. PLAN: Continue to monitor the patient. Will do an echocardiogram, and also a consult with Dr. Paty caldwell has been requested, neurology consult for syncope. Will follow with you. The patient will continu e Flomax 0.4 mg p.o. daily, gabapentin 300 mg t.i.d., amlodipine 10 mg daily, Pepcid 40 mg p.o. at be dtime, Rocephin 1 g IV. Gurmeet Scott MD cc: [id number] TT: 07/29/2016 20:03:39 Confirmation # [id number] Dictation # [id number] jn
--- NOTE | 2016-07-29 20:21 | HP ---
CHIEF COMPLAINT: Fall, trauma, syncope. HISTORY OF PRESENT ILLNESS: The patient is an 85-year-old male, brought to ER by the ambulance after being found on the ground in his home. 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 Family members state that they were calling the house multiple times and the patient could not answer. Finally, he answered his cell phone and said that he is on the ground. He is not sure exactly what timeframe that happened, but according to him, he was on the ground since 1:00 in the afternoon. The patient denies headache, although he states he does have some pain in the left side of the forehead and abrasions to the left side of the face. The patient denies dizziness. The patient says he has been feeling weak and that is why he believes he was unable to get up once he had fallen. He denies chest pain, shortness of breath. No nausea, vomiting , diarrhea. He is complaining about chronic neck pain and low back pain. No numbness or weakness or tingling in the extremities. No abdominal pain, no fever, no chills. The patient said that in ER, he feels nauseous in the Emergency Room and vomited 3 times. Family member states that the patient has been having frequent falls lately and this is the first time that they have actually witnessed him on the ground. They state he usually tells them about a week later than he has fall. I saw the patient in telemetry. He was sitting on the chair. That moment, no nauseous, no vomiting. PAST MEDICAL HISTORY: Hypertension, frequent falls, gouty arthritis, BPH. FAMILY HISTORY: Father and mother noncontributory. HABITS: Former smoker. No drugs, no ethanol. ALLERGIES: The patient is not allergic with any medications. HOME MEDICATIONS: Norvasc, docusate, iron, Neurontin, multivitamins, Flomax. REVIEW OF SYSTEMS: The patient is seen and examined on the bedside, sitting on the chair, feeling fatigue and tired. No vision changes, no photophobia, no eye pain. No sore throat or sinus congestion. No shortness of breath or coughing. No chest pain or palpitation. Has history of nauseous, vomiting. No abdominal pain, constipation, or diarrhea. No history of dysuria, frequency , hematuria. Complaining about back pain, neck pain. No rash or pruritus. No anxiety or depression. PHYSICAL EXAMINATION: VITAL SIGNS: Temperature 97.5, pulse 85, blood pressure 145/70, respiratory rate 16. HEENT: Head normocephalic, atraumatic. Eyes: PERRLA. Extraocular muscles intact. Conjunctivae pink. Eyelids unremarkable. Nose patent. Mucous membranes moist. NECK: Supple. No carotid bruit, no JVD, no thyromegaly. CHEST: Bilaterally symmetrical. HEART: S1 and S2 positive. LUNGS: Clear to auscultation. ABDOMEN: Soft. Bowel sounds positive. No organomegaly. EXTREMITIES: No edema, no cyanosis. NEUROLOGIC: The patient is awake, alert, moving all 4 extremities. No focal deficits. LABORATORIES: White blood cells 10.2, hemoglobin 10.7, hematocrit 32.6, platelets 247. Sodium 140, potassium 4.6, BUN 29, creatinine 1.6. Urine has protein and trace intact blood. ASSESSMENT AND PLAN: The patient is an 85-year-old male with anemia, renal insufficiency, proteinuria, hematuria, has a fall. Lumbar spine CT done, shows no fracture, kidney stones undetermined, recommended ultrasound or MRI, incidental nonacute findings, enlarged prostate, colonic diverticula, so he has nephrolithiasis. CAT scan of the head done, no intracranial hemorrhage, nonspecific white matter changes, sinus disease, incidental acute findings, near complete opacification of right sphenoid sinus, scattered minimal mucosal thickening of the remaining sinus and looks like severe sinusitis. Cervical spine CT reviewed by me, no fractures, mild of thecal sac lower cervical spine , neuroforaminal narrowing within mid and lower cervical spine. Cardiology consult called with Dr. Scott and neurology with Dr. Larsen. Keep on checking. Gastrointestinal and deep vein thrombosis prophylaxis. Started patient on iron, multivitamins, Colace for constipation, Flomax for benign prostatic hypertrophy, Neurontin for nerve pain, amlodipine for hypertension, Pepcid for gastrointestinal prophylaxis. Started antibiotics for sinusitis. The patient is getting Zofran on p.r.n. basis for nauseousness. Repeat labs. We will follow up. Emy Villegas MD cc: [id number] TT: 07/29/2016 20:20:43 en MTDD
[2016-07-30 08:25] LABS: HEMATOCRIT 33.9 % (42.0-52.0); MEAN CELL VOLUME 87.8 fL (80.0-105.0); MEAN CORPUSCULAR HGB CONC 31.9 g/dl (31.0-37.0); MEAN PLATELET VOLUME 10.2 fl (7.0-11.0); RED CELL DISTRIBUTION WIDTH 13.4 % (11.5-14.5); WHITE BLOOD COUNT 7.3 10^3/ul (4.5-11.0)
[2016-07-30 08:31] LABS: POTASSIUM 4.7 mmol/L (3.6-5.0)
[2016-07-30] MEDS: cefTRIAXone 1 gm 100 ML IVPB SCH (10:15)
[2016-07-30] MEDS: FERROUS SULFATE DRIED PO SCH (10:16)
[2016-07-30] MEDS: [UNRECOGNIZED DRUG - OTHER] PO SCH (10:17)
--- NOTE | 2016-07-30 11:29 | PN ---
DATE: 07/30/2016 The patient in room 275, bed 1. REASON FOR CONSULTATION: Syncope, hypertension. HISTORY OF PRESENT ILLNESS: The patient is an 85-year-old male, known case of hypertension. 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 Denies chest pain, shortn ess of breath, palpitation, nausea, vomiting associated with this episode. The patient sitting in ch air comfortably at present. PHYSICAL EXAMINATION: VITAL SIGNS: Blood pressure 123/84, respirations 20, pulse 69, temperature 97.8. HEAD: Normocephalic. EYES: Pupils normal. Conjunctivae slightly pale. NECK: JVP low. Carotid equal. THORAX: AP diameter normal. LUNGS: Clear. CARDIOVASCULAR: S1, S2. ABDOMEN: Soft, no tenderness, no organomegaly. EXTREMITIES: No clubbing, no cyanosis. LABORATORY DATA: WBC 7.3, hemoglobin 10.8, hematocrit 33.9, platelet 231. Sodium 139, potassium 4.7 , BUN 28, creatinine 1.7, random glucose 78. Total CPK 1229. Troponin negative. TSH 1.25, which is normal. DIAGNOSES: Fall, head injury, probably syncope, back pain, degenerative changes in the spine, hypert ension, anemia. PLAN: We will continue to monitor patient to see any arrhythmia. Echo has been already requested. We will also order IV Lexiscan stress test. In the meantime, patient will continue with present ther apy, ferrous sulfate 1 tablet daily, Flomax 0.4 daily, Neurontin 300 mg t.i.d., amlodipine 10 mg alanna y, Rocephin 1 gram IV daily and we will continue to follow with you. Gurmeet Scott MD cc: [id number] TT: 07/30/2016 11:28:36 Confirmation # [id number] Dictation # [id number] en
--- NOTE | 2016-07-30 16:12 | US ---
PROCEDURE: HISTORY: kidny stones COMPARISON: TECHNIQUE: FINDINGS: The right left kidney measure 11.3 and 11.7 centimeters respectively without evidence of hydronephrosis or renal calculi. There are multiple bilateral renal cysts largest in the right kidney measuring 3.1 centimeters in the interpolar region and left kidney measuring 1.8 centimeters. Otherwise renal cortices are homogeneous. IMPRESSION: No renal calculi hydronephrosis. Multiple bilateral simple renal cysts.
--- NOTE | 2016-07-30 16:48 | US ---
PROCEDURE: Bilateral carotid artery duplex ultrasound HISTORY: Carotid stenosis PHYSICIAN(S): Zaid Amador MD. TECHNIQUE: Duplex sonography and color-flow Doppler were used to evaluate the carotid bifurcations and limited segments of the vertebral arteries bilaterally. FINDINGS: There is mild smooth heterogeneous plaque noted at the carotid bifurcations bilaterally. The peak systolic velocity in the proximal right internal carotid artery is 99 cm/sec. This corresponds to a 20 to 39% proximal right ICA stenosis. Normal systolic velocities are noted in the proximal right external carotid artery. There is antegrade flow in the right vertebral artery. The peak systolic velocity in the proximal left internal carotid artery is 93 cm/sec. This corresponds to a 20 to 39% proximal left ICA stenosis. Normal systolic velocities are noted in the proximal left external carotid artery. There is antegrade flow in the left vertebral artery. IMPRESSION: 1. Bilateral 20-39% proximal ICA stenoses. 2. Antegrade flow in both vertebral arteries.
--- NOTE | 2016-07-30 20:22 | PN ---
DATE: 07/30/2016 SUBJECTIVE: The patient seen and examined on the bedside, sitting on the chair. No nausea, vomiting, diarrhea. No hematuria or hematochezia. No swelling of the leg. No chest pain, no palpitation, no fever. PHYSICAL EXAMINATION: VITAL SIGNS: Blood pressure 123/84, respiratory rate 20, pulse 69, temperature 97.8. HEENT: Head normocephalic, atraumatic. Eyes PERRLA. Extraocular muscles intact. Conjunctivae pink. Eyelids unremarkable. Nose patent. Mucous membranes moist. NECK: Supple. No carotid bruit, JVD or thyromegaly. CHEST: Bilaterally symmetrical. HEART: S1, S2 positive. LUNGS: Clear to auscultation. ABDOMEN: Soft. Bowel sounds present. No organomegaly. EXTREMITIES: No edema, no cyanosis. NEUROLOGIC: The patient is awake, alert and moving all 4 extremities. No focal deficit. LABORATORY DATA: White blood cells 7.3, hemoglobin 10.8, hematocrit 33.9, platelets 231. Sodium 139, potassium 4.7, BUN noted creatinine 1.7, random glucose 78. Total CPK 1229. Troponin negative. TSH 1.25. ASSESSMENT AND PLAN: The patient is an 85-year-old male with history of fall, head injury, rule out syncope; back pain, degenerative changes in the spine, hypertension, anemia. Dr. Scott is monitoring patient for arrhythmias. Wants to do stress test. The patient given ferrous sulfate, Flomax, Neurontin and amlodipine. Rocephin is given also. The patient went for bilateral carotid artery ultrasound. It shows bilateral 20% to 39% proximal internal carotid artery stenosis, antegrade flow in both vertebral arteries. Went for renal ultrasound, no renal calculi, hydronephrosis, multiple bilateral simple renal cysts. Seen by Dr. Shahzad Larsen. The patient has history of hypertension, history of arthritis. Orthostatic was normal. Denies any lightheadedness at this time. Moving all extremities. Looks like deconditioned, patient needs physical therapy. Continue aspirin. Gastrointestinal and deep venous thrombosis prophylaxis. Repeat labs. We will follow up. Emy Villegas MD cc: [id number] TT: 07/30/2016 20:22:30 Confirmation # [id number] Dictation # [id number] sn MTDD
--- NOTE | 2016-07-31 12:31 | CP.PCM.PCO ---
Physician Communication Note - Physician Communication Note Physician Communication Note: carotid reveiwed. c/w ASA/Statin. PT needs physical therapy.
[2016-07-31] MEDS ORDERED: Aminophylline 25 mg/ml Inj ONE (12:56)
--- NOTE | 2016-07-31 13:42 | PN ---
DATE: 07/31/2016 REASON FOR CONSULTATION AND FOLLOWUP: Syncope, hypertension. HISTORY OF PRESENT ILLNESS: The patient is an 85-year-old male with a past medical history significa nt for hypertension, who fell down, sustained trauma to the head. Denies any chest pain, denies any shortness of breath, who bent down and fell down. The patient is scheduled for a stress test. PHYSICAL EXAMINATION: VITAL SIGNS: Temperature afebrile, heart rate , blood pressure 137/64. HEENT: PERRLA. Extraocular muscles intact. NECK: Supple. No carotid bruits. No thyromegaly. CHEST: Clear to auscultation. HEART: S1, S2 regular. ABDOMEN: Soft. EXTREMITIES: Clubbing, cyanosis negative. BLOOD WORKUP: WBC 7.3, hemoglobin 10.8, hematocrit 33.9, platelet count 231. Chemistry shows sodium 139, potassium 4. , chloride 105, carbon dioxide 26, anion gap of 13, BUN 28, creatinine 1.7. T roponin 0.02, negative. IMPRESSION: Chronic kidney disease, is status post fall, status post rhabdomyolysis, CPK maximum 122 9, troponin remains negative, no evidence of acute coronary syndrome, hypertension. RECOMMENDATION: We will follow echo. We will do a stress test. Further recommendations after the s tress test. No evidence of arrhythmia noted. After the stress test, we will discontinue telemetry. Thank you, Dr. Villegas, for providing us the opportunity in taking care of the patient. Gurmeet Barber MD cc: [id number] TT: 07/31/2016 13:41:58 Confirmation # [id number] Dictation # [id number] en
[2016-07-31] MEDS: FERROUS SULFATE DRIED PO SCH (15:12)
[2016-07-31] MEDS: cefTRIAXone 1 gm 100 ML IVPB SCH (15:12)
[2016-07-31] MEDS: Sodium Chloride 0.9% 1,000 ML IV SCH (15:14)
[2016-07-31] MEDS: [UNRECOGNIZED DRUG - OTHER] PO SCH (15:14)
--- NOTE | 2016-07-31 17:45 | CARD ---
APPROVED REPORT EXAM: Two-dimensional and M-mode echocardiogram with Doppler and color Doppler. INDICATION Hypertension/HCVD Syncope 2D DIMENSIONS Left Atrium (2D)3.2 (1.6-4.0cm)IVSd1.2 (0.7-1.1cm) LVDd4.0 (3.9-5.9cm)PWd1.3 (0.7-1.1cm) LVDs3.1 (2.5-4.0cm)FS (%) 24.5 % LVEF (%)49.2 (>50%) M-Mode DIMENSIONS Aortic Root2.80 (2.2-3.7cm)Aortic Cusp Exc.1.70 (1.5-2.0cm) Aortic Valve AoV Peak Jwzakjpu974.0cm/Ernestine Peak GR.9mmHg Mitral Valve MV E Sordtkkj05.3cm/sMV A Qqfmruov533.0cm/sE/A ratio0.6 TDI E/Lateral E'0.0E/Medial E'0.0 Tricuspid Valve TR Peak Twvisryq079yb/sRAP [id number] Peak Gr.27mmHg [id number] LEFT VENTRICLE The left ventricle is normal size. There is mild concentric left ventricular hypertrophy. The systolic function is mildly impaired.EF-45-50% There is mild hypokinesis in the mid-inferoseptal wall. Transmitral Doppler flow pattern is Grade III-reversible restrictive diastolic dysfunction. No left ventricle thrombus noted on this study. There is no ventricular septal defect visualized. There is no left ventricular aneurysm. There is no mass noted in the left ventricle. RIGHT VENTRICLE The right ventricle is normal size. There is normal right ventricular wall thickness. The right ventricular systolic function is normal. ATRIA The left atrium size is normal. The right atrium size is normal. The interatrial septum is intact with no evidence for an atrial septal defect. AORTIC VALVE The aortic valve is calcified but opens well. The aortic valve is moderately sclerotic. There is trace aortic regurgitation. There is no aortic valvular stenosis. Aortic Sclerosis Vs Mild MITRAL VALVE The mitral valve is thickened but opens well. Mitral annular calcification is mild. Mitral regurgitation is trace. There is no mitral valve stenosis. There is no evidence of mitral valve prolapse. TRICUSPID VALVE The tricuspid valve leaflets are thickened , but open well. There is trace to mild tricuspid regurgitation.RVSP-37 mmof Hg. There is no tricuspid valve stenosis. PULMONIC VALVE The pulmonic valve is mildly thickened. There is trace to mild pulmonic valvular regurgitation. There is no pulmonic valvular stenosis. GREAT VESSELS The aortic root is normal in size. The ascending aorta is normal in size. The pulmonary artery is normal. The IVC is normal in size and collapses >50% with inspiration. PERICARDIAL EFFUSION There is no pleural effusion. There is no pericardial effusion. <Conclusion> The left ventricle is normal size. There is mild concentric left ventricular hypertrophy. The systolic function is mildly impaired.EF-45-50% There is trace aortic regurgitation. Aortic Sclerosis Vs Mild Mitral regurgitation is trace. There is trace to mild tricuspid regurgitation.RVSP-37 mmof Hg.
--- NOTE | 2016-07-31 22:06 | CARD ---
APPROVED REPORT Protocol: LEXISCAN Test Type: Lexiscan Sestamibi Stress Test Attending Physician: Dr. Gurmeet Scott Referring Physician: Dr. Emy Villegas Test Indications: Chest pain Height:6 ft 0 in Weight:218lbs Medications: Tylenol, Norvasc, Rocephin, Colace, Pepcid, Neurontin, Ferrous Sulfate, Zofran, Flomax, Multivitamin Medical History: 85 y/o male with a history of htn, gout, BPH Target HR: 137 bpm Resting ECG: Sinus Rythm. PACs. Resting Heart Rate: 86 bpm Resting Blood Pressure: 140/80mmHg Submaximum (85%): 116 bpm PROCEDURE Pharmacologic stress testing was performed using 0.4mg per 5ml of regadenoson given intravenously over 7-10 seconds. POST EXERCISE Reason for Termination: Protocol completed Target HR: No Max HR: 88 bpm 75% of Maximum Predicted HR: 137 bpm Exercise duration: 00:30 min:sec, 0 Stage Exercise capacity: 1.0METs Max Blood Pressure: 140/80mmHg Blood Pressure response to exercise: normal resting BP - appropriate response Heart Rate response to exercise: appropriate Chest Pain: No, none Angina index: 0 Arrhythmia: Yes, PACs. ST Change: No, none Deviation: 0 mm INTERPRETATION Stress EKG Conclusion: IV LEXISCAN NUCLEAR STRESS TEST NEGATIVE FOR CHEST PAIN AND NEGATIVE FOR ST-T CHANGES. NUCLEAR SCAN REPORT PENDING. Signed by Gurmeet Scott Electronically Approved: 07/31/2016 14:19:22 EXAM: Myocardial Perfusion REST/STRESS Stress Test Type: Pharmacologic Imaging Protocol Rest Spect myocardial perfusion imaging was performed in supine position 163 minutes following the injection of 10 mCi of Tc-99 Myoview. At peak stress, the patient was injected intravenously with 30.9mCi of Tc-99 tetrofosmin after an infusion time of minutes and 10 seconds. Gated Stress Spect was performed 38 minutes after intravenous Tc-99 Myoview injection. The images were gated to evaluate regional wall motion and calculate ventricular ejection fraction.Images were reconstructed using backfilter projection method in short horizontal and verticle long axis. Spect slices were generated. LV Perfusion The quality of the study is good. The left ventricle is within normal limits in size. The right ventricle is unremarkable. The lung uptake is normal. The distribution of tracer reveals mildly to moderately decreased perfusion involving apical and inferior pena on the stress study. The remainder of the LV myocardium is unremarkable. The rest myocardial perfusion study shows no significant change. Wall Motion Wall motion study shows good contractility of the left ventricle. LVEF = 62%. Conclusion 1. Probably normal SPECT myocardial perfusion study. 2. Fixed, apical and inferior defects are most likely due to diaphragmatic attenuation. However, previous myocardial injury in this region cannot be totally excluded. 3. Normal gated wall motion of the left ventricle.
[2016-08-01] MEDS: Sodium Chloride 0.9% 1,000 ML IV SCH ×3 (04:52→20:26)
--- NOTE | 2016-08-01 05:24 | PN ---
DATE: 07/31/2016 The patient is a 85-year-old male. SUBJECTIVE: The patient seen and examined on the bedside in the presence of [id number] and son, looks comfortable, complaining about back pain. No nausea, vomiting, or diarrhea. No hematuria or hematochezia. No swelling of the leg. No chest pain. No palpitation. PHYSICAL EXAMINATION: VITAL SIGNS: The patient is afebrile. Temperature 98.3, pulse 86, blood pressure 20/80 , respiratory rate 19. HEENT: Head normocephalic, atraumatic. Eyes: PERRLA. Extraocular movements intact. Conjunctivae pink. Eyelids unremarkable. Nose patent. Mucous membranes moist. NECK: Supple. No carotid bruit, JVD, or thyromegaly. CHEST: Bilaterally symmetrical. HEART: S1, S2 positive. LUNGS: Clear to auscultation. ABDOMEN: Soft. Bowel sounds present. No organomegaly. EXTREMITIES: No edema. No cyanosis. NEUROLOGIC: The patient is awake, alert, moving all 4 extremities. No focal deficits. MEDICATIONS: Colace, iron sulfate, Flomax, multivitamin, Neurontin, Norvasc, Pepcid, Rocephin, Aranesp, Tylenol, Zofran. LABORATORY DATA: White blood cells 7.3, hemoglobin 10.8, hematocrit 33.9, platelets 231. Sodium 139, potassium 4.7, BUN 20, creatinine 1.7, glucose 78. Hemoglobin A1c 4.8. ASSESSMENT AND PLAN: The patient is an 85-year-old male with anemia, renal insufficiency, iron deficiency, proteinuria, hematuria, went for a myocardial stress test, results are pending. Echo is done. Looks like chronic kidney disease, status post fall, has rhabdomyolysis. CPK is increasing, trending up. Troponin remains negative. No evidence of acute coronary artery syndrome. Hypertension, getting better. Appreciated Dr. Larsen's communication report. The patient's last admission was 04/30/2015. The patient has obstructive uropathy and elevated PSA. The patient last time went to subacute rehab. Dr. Sanchez saw the patient last time for elevated PSA. We will repeat PSA. Carotid ultrasound is done. Renal ultrasound is done. No renal calculi, hydronephrosis , multiple bilateral simple renal cysts. Went for lumbar supine CT, cervical spine CT: No fracture on emergent ultrasound. MRI incidental acute finding is enlarged prostate. Cervical spine CT is done also. No fracture. Length of time discussion done with the patient's family, giving hydration to the patient due to rhabdomyolysis, physical therapy. We will follow up. Emy Villegas MD cc: [id number] TT: 08/01/2016 04:07:52 Confirmation # [id number] Dictation # [id number] tn 08/01/2016 04:23:24 ENZO
[2016-08-01 08:59] LABS: ADD MANUAL DIFF? NO
[2016-08-01 09:09] LABS: BASO # 0.02 K/mm3 (0.0-2.0); BASO % 0.2 % (0.0-3.0); EOS # 0.3 (0.0-0.7); EOS % 3.1 % (1.5-5.0); GRAN # 6.42 (1.4-6.5); GRAN % 67.7 % (50.0-68.0); HEMATOCRIT 33.1 % (42.0-52.0); LYMPH # 1.4 (1.2-3.4); LYMPH % 14.7 % (22.0-35.0); MEAN CELL VOLUME 87.3 fL (80.0-105.0); MEAN CORPUSCULAR HEMOGLOBIN 28.2 pg (25.0-35.0); MEAN CORPUSCULAR HGB CONC 32.3 g/dl (31.0-37.0); MEAN PLATELET VOLUME 10.6 fl (7.0-11.0); MONO # 1.4 (0.1-0.6); MONO % 14.3 % (1.0-6.0); PLATELET COUNT 238 10^3/uL (120.0-450.0); RED CELL DISTRIBUTION WIDTH 13.1 % (11.5-14.5); WHITE BLOOD COUNT 9.5 10^3/ul (4.5-11.0)
[2016-08-01 09:10] LABS: ALB/GLOB RATIO 0.9 (1.1-1.8); BILIRUBIN,TOTAL 0.5 mg/dL (0.2-1.3); CALCIUM 8.6 mg/dL (8.4-10.5); POTASSIUM 4.4 mmol/L (3.6-5.0); TOTAL PROTEIN 7.6 g/dL (5.8-8.3)
[2016-08-01] MEDS: cefTRIAXone 1 gm 100 ML IVPB SCH (09:39)
[2016-08-01] MEDS: [UNRECOGNIZED DRUG - OTHER] PO SCH (09:40)
[2016-08-01] MEDS: FERROUS SULFATE DRIED PO SCH (09:40)
--- NOTE | 2016-08-01 13:12 | PN ---
DATE: 08/01/2016 REASON FOR CONSULTATION AND FOLLOWUP: Syncope, hypertension. BRIEF CLINICAL HISTORY: This is an 85-year-old male with a past medical history significant for hype rtension. 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 Denies any chest pain, shortness of breath. The patient underwent a stress test yesterday that was negative fixed defect. PHYSICAL EXAMINATION: As follows: VITAL SIGNS: Temperature afebrile, heart rate 58, blood pressure 138/99. HEENT: PERRLA, intact. NECK: Supple. No carotid bruits. No thyromegaly. CHEST: Clear to auscultation. HEART: S1, S2 regular. ABDOMEN: Soft. EXTREMITIES: Clubbing and cyanosis negative. BLOOD WORKUP: As follows: WBC 9.5, hemoglobin ____, hematocrit 33.1, platelet count 238. Chemistry shows sodium ____, potassium 4.4, chloride of 106, carbon dioxide 25, anion gap of 10, BUN 25, creat inine 1.7. IMPRESSION: Chronic renal insufficiency, no evidence of acute myocardial infarction; rhabdomyolysis secondary to fall. Stress test, fixed defect, no reversible ischemia, ejection fraction reported as 62%, fixed defect, had no ischemia. The patient had echocardiography done yesterday that showed ejec tion fraction 45% to 50%, trace aortic regurgitation, mild aortic stenosis, trace mitral regurgitatio n, mild tricuspid regurgitation, right ventricular systolic pressure 37. RECOMMENDATIONS: We will discontinue IV fluid. Repeat CPK in the morning. If coming back to normal , we will discontinue IV fluid. Check the renal function, SMA-7 tomorrow. We will follow with you. Continue Flomax for BPH. We will follow with you. Thank you, Dr. Villegas, for providing the opportunity in taking care of the patient. Continue amlodipine for blood pressure. We will repeat SMA-7 in the morning with CPK. SMA-7 in the morning. Gurmeet Barber MD cc: [id number] TT: 08/01/2016 13:11:39 Confirmation # [id number] Dictation # [id number] sn
[2016-08-01 19:17] VITALS: RESP 20
--- NOTE | 2016-08-01 22:02 | PN ---
DATE: 08/01/2016 SUBJECTIVE: The patient seen and examined on the bedside, having dinner. Looks comfortable. No nausea, vomiting, or diarrhea. No hematuria or hematochezia. No swelling of the leg. No chest pain or palpitation. Feeling very fatigued and tired. PHYSICAL EXAMINATION: VITAL SIGNS: Temperature, the patient is afebrile, heart rate 58, blood pressure 138/89. HEAD: Normocephalic, atraumatic. Eyes: PERRLA. Extraocular muscles intact. Conjunctivae clear. Eyelids unremarkable. Nose patent. Mucous membranes moist. NECK: Supple. No carotid bruit, JVD or thyromegaly. CHEST: Bilaterally symmetrical. HEART: S1, S2 positive. Regular rate and rhythm. ABDOMEN: Soft. Bowel sounds positive. No organomegaly. EXTREMITIES: No edema, no cyanosis. LABORATORY DATA: White blood cells 9.5, hemoglobin 10.7, hematocrit 33.1, platelets 238. Sodium 137, potassium 4.4, BUN 25, creatinine 1.7, creatine kinase 539. ASSESSMENT AND PLAN: The patient is an 85-year-old male with anemia, renal insufficiency. Creatine kinase is improving. Proteinuria, hematuria. Hepatitis profile is negative. No evidence of acute myocardial infarction as per Dr. Barber. Rhabdomyolysis secondary to fall. Stress test showed a fixed defect. No reversible ischemia. Ejection fraction of 62%. The fixed defect, no ischemia. The patient had echocardiography done, shows ejection fraction 45% -50%, trace aortic regurgitation, mild aortic stenosis, tricuspid regurgitation , right ventricular systolic pressure 37. Dr. Barber discontinued the IV fluids. Repeat CPK in the morning. Continue Flomax for benign prostatic hypertrophy. The patient has history of benign prostatic hypertrophy and hypertension. 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 Giving patient physical therapy. The patient is deconditioned, had multiple falls. Neurologist is on the case. The patient has a history of in the past. Was seen by Dr. Sanchez last time. Gastrointestinal and deep venous thrombosis prophylaxis. Repeat labs. We will follow up. Emy Villegas MD cc: [id number] TT: 08/01/2016 22:01:44 Confirmation # [id number] Dictation # [id number] codie [id number]
[2016-08-02 07:52] LABS: HEMATOCRIT 31.4 % (42.0-52.0); MEAN CELL VOLUME 86.5 fL (80.0-105.0); MEAN CORPUSCULAR HEMOGLOBIN 28.1 pg (25.0-35.0); MEAN CORPUSCULAR HGB CONC 32.5 g/dl (31.0-37.0); MEAN PLATELET VOLUME 10.2 fl (7.0-11.0); RED CELL DISTRIBUTION WIDTH 12.9 % (11.5-14.5); WHITE BLOOD COUNT 10.8 10^3/ul (4.5-11.0)
[2016-08-02 08:14] LABS: CALCIUM 8.4 mg/dL (8.4-10.5); POTASSIUM 4.4 mmol/L (3.6-5.0)
[2016-08-02] MEDS: cefTRIAXone 1 gm 100 ML IVPB SCH (09:52)
[2016-08-02] MEDS: FERROUS SULFATE DRIED PO SCH (09:53)
[2016-08-02] MEDS: [UNRECOGNIZED DRUG - OTHER] PO SCH (09:53)
[2016-08-02 10:03] VITALS: BP 146/69; PULSE 88
[2016-08-02 10:23] VITALS: TEMP 99; O2SAT 95
--- NOTE | 2016-08-02 19:34 | PN ---
DATE: 08/02/2016 The patient in room 369, bed 1. REASON FOR CONSULTATION AND FOLLOWUP: Syncope, hypertension. 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 The patient denies chest pain, shortn ess of breath, palpitation. The patient is sitting in chair comfortably without any cardiac symptoms . The patient's stress test on this admission is negative. The patient on examination: VITAL SIGNS: Blood pressure 146/69, respirations 20, pulse 88, temperature 99. HEAD: Normocephalic. EYES: Pupils normal, conjunctivae slightly pale. NECK: JVP low. Carotid equal. THORAX: AP diameter normal. LUNGS: Clear. CARDIOVASCULAR: S1, S2, systolic murmur; no rub. ABDOMEN: Soft, nontender, no organomegaly. Bowel sounds normal. EXTREMITIES: No clubbing, no cyanosis. LABORATORIES: WBC 10.8, hemoglobin 10.2, hematocrit 31.4, platelet 216. Sodium 136, BUN 27, creatin ine 1.6, calcium 8.4. DIAGNOSES: Rhabdomyolysis secondary to fall, chronic renal insufficiency. Negative stress test. Ej ection fraction 62%. Echo showed ejection fraction 45-50%, trace aortic regurg, mild aortic stenosis , trace mitral regurg, mild tricuspid regurg, right ventricle systolic pressure 37 mmHg. PLAN: To continue present therapy, and will follow with you. Gurmeet Scott MD cc: [id number] TT: 08/02/2016 19:34:08 Confirmation # [id number] Dictation # [id number] chanel
[2016-08-03 18:54] LABS: TOTAL PSA 7.6 ng/mL (<=4.0)
== END 2016-08-02 17:03 | DRG 558 ==
LOC: ED 22:30 → ERH 07-29 03:48 → 2RSO 07-29 04:54 → OBSVTOIN 07-29 17:46 → 3RNO 07-31 22:52
PROVIDERS: ADMIT Internal Medicine; ATTEND Internal Medicine
DX: M62.82 Rhabdomyolysis (principal); G62.9 Polyneuropathy, unspecified; D64.9 Anemia, unspecified; I08.2 Rheumatic disorders of both aortic and tricuspid valves; I12.9 Hypertensive chronic kidney disease with stage 1 through stage 4 chronic kidney disease, or unspecified chronic kidney disease; N18.9 Chronic kidney disease, unspecified; N40.0 Benign prostatic hyperplasia without lower urinary tract symptoms; M10.9 Gout, unspecified; R29.6 Repeated falls; R55 Syncope and collapse; N20.0 Calculus of kidney; I65.23 Occlusion and stenosis of bilateral carotid arteries; Z87.891 Personal history of nicotine dependence